=== PATIENT | female | born 2005 | race Asian ===

== ENCOUNTER 2023-01-14 12:27 | Emergency (ER) | payer MEDICAID ==
[~2023-01-14] VITALS: Ht 154.9 cm; Wt 61.2 kg
[2023-01-14 12:34] VITALS: BP 115/77
--- NOTE | 2023-01-14 12:45 | ED EENT ---
History of Present Illness General Chief Complaint: Eye Problems Stated Complaint: EYE IRRITATION Nursing Triage Note: PT AMB TO TRIAGE WITH COMPLAINT OF RIGHT EYE SWELLING AND REDNESS. STATES STARTED 3 DAYS AGO. History of Present Illness Date Seen by Provider: Jan 14, 2023 Time Seen by Provider: 12:45 Initial Comments 17-year-old female presents with swelling to her right eye that started 3 days ago with a little bit of redness and tearing. She reports now she get a little bit of swelling to her left eye. She has noticed a little bit of drainage last night. No vision changes, burning or itching. Allergies and Home Medications Allergies Coded Allergies: No Known Drug Allergies (Unverified , 01/14/23) Patient Home Medication List Home Medication List Reviewed: Yes Ofloxacin (Ofloxacin) 0.3 % Drops, 2 DROPS OP Q4H Prescribed by: CONCEPCION ROSSI on 01/14/23 1250 Review of Systems Review of Systems Constitutional: no symptoms reported Eyes: See HPI; Denies Blurred Vision; Drainage; Denies Foreign Body Sensation; Inflammation; Denies Photophobia, Denies Previous Injury Ears: No Symptoms Reported Nose: no symptoms reported Mouth: no symptoms reported Throat: no symptoms reported Respiratory: no symptoms reported Cardiovascular: no symptoms reported Past Maadiuz-Mespvl-Qmwbap Hx Patient Social History Tobacco Use?: No Use of E-Cig and/or Vaping dev: No Substance use?: No Alcohol Use?: Yes Alcohol Frequency: Once in a while Pt feels they are or have been: No Physical Exam Vital Signs Vital Signs - First Documented 01/14/23 12:34 Temp 37.0 Pulse 93 Resp 20 B/P (MAP) 115/77 (90) Pulse Ox 95 O2 Delivery Room Air Height, Weight, BMI Height: '" Weight: lbs. oz. kg; 25.00 BMI Method: General Appearance: WD/WN, no apparent distress Eyes: bilateral eye conjunctival inflammation, bilateral eye lid inflammation Cardiovascular: normal peripheral pulses, regular rate, rhythm Respiratory: lungs clear, normal breath sounds Gastrointestinal: non tender, soft Neurologic/Psychiatric: alert, normal mood/affect, oriented x 3 Skin: normal color, warm/dry Progress/Results/Core Measures Results/Orders Vital Signs/I&O 01/14/23 12:34 Temp 37.0 Pulse 93 Resp 20 B/P (MAP) 115/77 (90) Pulse Ox 95 O2 Delivery Room Air Blood Pressure Mean: 90 Progress Progress Note : Progress Note Patient's symptoms are consistent with bilateral conjunctivitis. I will start her on ofloxacin drops. P I did recommend she follow-up with branch sales manager and about a week to have it rechecked. She can also use a gentle eyewash or diluted Anibal & Anibal baby soap to help clean her eyes. She was stable and discharged Departure Impression Primary Impression: Acute conjunctivitis, bilateral Qualified Codes: H10.33 - Unspecified acute conjunctivitis, bilateral Disposition: 01 HOME, SELF-CARE Condition: Stable Departure-Patient Inst. Referrals: NO,LOCAL PHYSICIAN (PCP/Family) Primary Care Physician Patient Instructions: Conjunctivitis ([place]) (DC), How to Use Eye Drops and Eye Ointment ED Add. Discharge Instructions: Gently scrubbed with eye cleaner and dyer or diluted Anibal & Anibal baby shampoo. Use eyedrops daily as directed. Follow-up with the eye doctor in about a week for recheck of your symptoms All discharge instructions reviewed with patient and/or family. Voiced understanding. Scripts Ofloxacin (Ofloxacin) 0.3 % Drops 2 DROPS OP Q4H, #1 5ML 1 to 2 drops every 4 hours x2 days and then 1 to 2 drops 4 times a day for a total of 5 days Prov: CONCEPCION ROSSI DO 01/14/23 CONCEPCION ROSSI DO Jan 14, 2023 12:45
[2023-01-14] MEDS ORDERED: OFLO5DRO3 OP (12:50)
== END 2023-01-14 13:15 | disposition home or self-care (01) ==
LOC: ER 12:32
DX: H10.33 Unspecified acute conjunctivitis, bilateral (principal)
CPT/HCPCS: 99281

== ENCOUNTER 2023-01-14 19:55 | Emergency (ER) | payer MEDICAID ==
[~2023-01-14] VITALS: Ht 155 cm; Wt 61.2 kg
[~2023-01-14 19:55] MED LIST: OFLO5DRO3 OP
[2023-01-14 19:59] VITALS: BP 127/68
--- NOTE | 2023-01-14 20:15 | ED EENT ---
History of Present Illness General Chief Complaint: Eye Problems Stated Complaint: FEVER, INCREASED SWELLING, HEADACHE Nursing Triage Note: PT AMB TO RM 6 W C/O FEVER AND INCREASED SWELLING AROUND EYES. PT A&OX4, REPORTS FEVER OF 102.2, TOOK IBU APPROX 30 MINS AGO. (ALEX LEE) History of Present Illness Date Seen by Provider: Jan 14, 2023 Time Seen by Provider: 20:04 Initial Comments 17 year old female returns from earlier today for bilat conjunctivitis. Patient has used her eye drops twice. She noted increased swelling and fever this evening. Took Ibuprofen 600 mg 30 min FORENSIC TOXICOLOGIST and temp down to 101.7. Denies any side effects from eye drops. No pain with EOMs Timing/Duration: this evening Severity: mild Location: eye (R), eye (L) Prearrival Treatment: prescription meds Associated Symptoms: fever (ALEX LEE) Allergies and Home Medications Allergies Coded Allergies: No Known Drug Allergies (Unverified , 01/14/23) Patient Home Medication List Home Medication List Reviewed: Yes (ALEX LEE) Ofloxacin (Ofloxacin) 0.3 % Drops, 2 DROPS OP Q4H Prescribed by: CONCEPCION ROSSI on 01/14/23 1250 Review of Systems Review of Systems Constitutional: no symptoms reported, see HPI Eyes: See HPI; Denies Blurred Vision; Drainage; Denies Decreased Acuity, Denies Foreign Body Sensation; Inflammation; Denies Pain, Denies Photophobia, Denies Tunnel Vision, Denies Contact Lenses, Denies Glasses (ALEX LEE) All Other Systems Reviewed Negative Unless Noted: Yes (ALEX LEE) Past Dfobpli-Czgraj-Jhqmeb Hx Patient Social History Tobacco Use?: No Use of E-Cig and/or Vaping dev: No Substance use?: No Alcohol Use?: No (ALEX LEE) Immunizations Up To Date Influenza Vaccine Up-to-Date: No; Not Current First/Initial COVID19 Vaccinat: NONE Second COVID19 Vaccination Derek: NONE Third COVID19 Vaccination Date: NONE COVID19 Vaccine Director Global Development: NONE (ALEX LEE) Family Medical History Reviewed Nursing Family Hx (ALEX LEE) Physical Exam Vital Signs Vital Signs - First Documented 01/14/23 19:59 Temp 38.6 Pulse 97 Resp 18 B/P (MAP) 127/68 (87) Pulse Ox 95 O2 Delivery Room Air (ROSHAN,HERBIE K DO) Height, Weight, BMI Height: '" Weight: lbs. oz. kg; 25.00 BMI Method: General Appearance: WD/WN, no apparent distress Eyes: bilateral eye PERRL, bilateral eye EOMI, bilateral eye conjunctival inflammation, bilateral eye lid inflammation (minimal) Ears: bilateral ear auricle normal, bilateral ear canal normal, bilateral ear TM normal Nose: normal inspection; No discharge Mouth/Throat: normal mouth inspection, pharynx normal Neurologic/Psychiatric: no motor/sensory deficits, alert, normal mood/affect, oriented x 3 (ALEX LEE) Progress/Results/Core Measures Results/Orders Vital Signs/I&O 01/14/23 01/14/23 19:59 20:38 Temp 38.6 37.6 Pulse 97 Resp 18 B/P (MAP) 127/68 (87) Pulse Ox 95 O2 Delivery Room Air (ROSHAN,HERBIE K DO) Blood Pressure Mean: 87 Progress Progress Note : Time: 20:04 Progress Note patient assessed, no signs of harvinder orbital edema. Cool wash cloth to eyes, will re-evaluate in 20-30 min and then plan discharge. 2030 temp down to 99.6. Discharge instructions and return precautions reviewed with patient. All questions answered (ALEX LEE) Departure Impression Primary Impression: Conjunctivitis Qualified Codes: H10.33 - Unspecified acute conjunctivitis, bilateral Disposition: 01 HOME, SELF-CARE Condition: Improved Departure-Patient Inst. Referrals: NO,LOCAL PHYSICIAN (PCP) Primary Care Physician PAMELA WASHBURN MD Patient Instructions: Conjunctivitis ([place]) (DC) Add. Discharge Instructions: Apply cool wash rags to eyes every 2-3 hours. Continue to take antibiotics as prescribed. Avoid rubbing or touching your eyes. Wash your hands frequently. Change your pillowcase every other day. Follow-up at [facility] in [place] if symptoms or not improving or worsen. All discharge instructions reviewed with patient and/or family. Voiced understanding. ATTENDING PHYSICIAN NOTE: I WAS PHYSICALLY PRESENT ER PHYSICIAN, BUT I WAS NOT INVOLVED IN ANY DECISION MAKING OR ANY CARE OF THIS PATIENT, AND I AM NOT COLLABORATING PHYSICIAN. (HERBIE ISLAS DO) Copy Copies To 1: PAMELA WASHBURN MD, AMY ARNP Jan 14, 2023 20:15 HERBIE ISLAS DO Jan 15, 2023 04:18
== END 2023-01-14 20:38 | disposition home or self-care (01) ==
LOC: EDUNIT# 19:55 → ER 19:56
DX: H10.9 Unspecified conjunctivitis (principal); Z28.310 Unvaccinated for COVID-19
CPT/HCPCS: 99281